=== PATIENT | female | born 1940 | race Caucasian/White ===

== ENCOUNTER → 2024-09-06 09:42 | Outpatient (CLI) | payer MEDICARE, OTHER, SELFPAY | LOC: CAR 09:44 | PROVIDERS: PCP Family Medicine; Referring Provider Family Medicine; Visit Provider Family Medicine | DX: R00.2 Palpitations (principal) | CPT/HCPCS: 93246 ==

== ENCOUNTER → 2024-12-30 11:12 | Outpatient (CLI) | payer MEDICARE, OTHER, SELFPAY ==
[2024-12-30 12:12] LABS: Add Manual Diff / Slide Review NO; Basophils Absolute Auto 0 /uL (0-100); Basophils Percent Auto 0.7 % (0-2); Eosinophils Absolute Auto 100 /uL (0-450); Eosinophils Percent Auto 1.5 % (2-4); Hematocrit 35.7 % (36-46); Hemoglobin 12.2 g/dL (12.0-16.0); Lymphocytes Absolute Auto 1200 /uL (1100-4500); Lymphocytes Percent Auto 24.4 % (25-40); Mean Corpuscular Hemoglobin 31.5 PG (26-34); Mean Corpuscular Volume 92.8 fL (80-100); Monocytes Absolute Auto 600 /uL (0-900); Monocytes Percent Auto 12.2 % (3-14); Neutrophils Absolute Auto 3100 /uL (1500-7000); Neutrophils Percent Auto 61.2 % (50-75); Platelet Count 360 X10^3/uL (150-400); Red Blood Cell Count 3.85 X10^6/uL (4.0-5.2); Red Cell Distribution Width 14.4 % (11.6-14.8); White Blood Cell Count 5.1 X10^3/uL (4.5-11.0)
[2024-12-30 12:42] LABS: Alanine Aminotransferase 17 IU/L (<35); Albumin 4.3 g/dL (3.5-5.0); Alkaline Phosphatase 59 U/L (38-126); Aspartate Aminotransferase 24 IU/L (14-36); BUN Creatinine Ratio 26.2 (6-22); Bilirubin Total 0.8 mg/dL (0.2-1.3); Blood Urea Nitrogen 22 mg/dL (7-17); Calcium 9.3 mg/dL (8.4-10.2); Carbon Dioxide 24 mmol/L (22-32); Chloride 97 mmol/L (98-107); Cholesterol 183 mg/dL (140-199); Estimated Glomerular Filt Rate > 60 mL/min (>60); Globulin 2.2 g/dL (1.7-4.1); Glucose 88 mg/dL (70-99); HDL Cholesterol 108 mg/dL (40-60); HEMOLYSIS < 15 (0-50); LDL Cholesterol Calculated 60 mg/dL (<100); Potassium 4.4 mmol/L (3.4-5.1); Sodium 127 mmol/L (137-145); Total Protein 6.5 g/dL (6.3-8.2); Triglycerides 77 mg/dL (35-150)
[2024-12-30 12:43] LABS: Hemoglobin A1C% w Est Avg Glu 5.1 % (4.0-6.0)
[2024-12-30 13:19] LABS: Ferritin 73 ng/mL (11-264)
== END ==
PROVIDERS: PCP Family Medicine; Referring Provider Family Medicine; Visit Provider Family Medicine
DX: I47.10 Supraventricular tachycardia, unspecified (principal); I12.9 Hypertensive chronic kidney disease with stage 1 through stage 4 chronic kidney disease, or unspecified chronic kidney disease; N18.31 Chronic kidney disease, stage 3a; R35.1 Nocturia; E78.5 Hyperlipidemia, unspecified; D64.9 Anemia, unspecified
CPT/HCPCS: 36415; 80053; 80061; 82728; 83036; 85025

== ENCOUNTER → 2025-01-05 11:57 | Outpatient (CLI) | payer MEDICARE, OTHER, SELFPAY ==
[2025-01-05 13:22] LABS: Iron 111 ug/dL (37-170)
[2025-01-05 14:00] LABS: Ferritin 76 ng/mL (11-264)
[2025-01-05 14:29] LABS: Folate 19.1 ng/mL (2.76-20.0); Vitamin B12 713 pg/mL (239-931)
== END ==
PROVIDERS: PCP Family Medicine; Referring Provider Family Medicine; Visit Provider Family Medicine
DX: D64.9 Anemia, unspecified (principal); Z86.39 Personal history of other endocrine, nutritional and metabolic disease
CPT/HCPCS: 36415; 82607; 82728; 82746; 83540

== ENCOUNTER → 2025-03-02 12:26 | Outpatient (CLI) | payer MEDICARE, OTHER, SELFPAY ==
[2025-03-02 14:46] LABS: Blood Urea Nitrogen 17 mg/dL (7-17); Calcium 9.5 mg/dL (8.4-10.2); Carbon Dioxide 25 mmol/L (22-32); Chloride 96 mmol/L (98-107); Estimated Glomerular Filt Rate > 60 mL/min (>60); Glucose 96 mg/dL (70-99); HEMOLYSIS < 15 (0-50); Potassium 4.4 mmol/L (3.4-5.1); Sodium 130 mmol/L (137-145)
== END ==
PROVIDERS: Family Provider Family Medicine; PCP Family Medicine; Referring Provider Family Medicine; Visit Provider Student in an Organized Health Care Education/Training Program
DX: R25.2 Cramp and spasm (principal)
CPT/HCPCS: 36415; 80048

== ENCOUNTER → 2025-04-09 12:43 | Outpatient (CLI) | payer MEDICARE, OTHER, SELFPAY | PROVIDERS: PCP Family Medicine; Visit Provider Family Medicine | DX: N30.00 Acute cystitis without hematuria (principal) | CPT/HCPCS: 87086 ==

== ENCOUNTER 2025-04-16 19:18 | Emergency (ER) | payer MEDICARE, OTHER, SELFPAY ==
[2025-04-16] VITALS (11 sets, daily range): BP systolic 129–196; BP diastolic 73–114; PULSE 54–69; RESP 10–22; TEMP 36.4; O2SAT 96–100; BMI 24.1
--- NOTE | 2025-04-16 19:56 | EKG_ITS ---
[address] [address] Test Date: 2025-04-16 Pat Name: Aurora Ledesma Department: Room: Gender: Female Creative Services Director: CINDY : 1940 Requested By: Order Number: [id number] Reading MD: Silvino Hedrick MD Measurements Intervals [place] Rate: 60 P: 67 WY: 214 QRS: 27 QRSD: 78 T: 60 QT: 422 QTc: 422 Interpretive Statements Sinus rhythm with 1st degree AV block Electronically Signed On 04-17-2025 6:47:41 PDT by Silvino Hedrick MD
--- NOTE | 2025-04-16 20:29 | ED.BACK ---
HPI - Back Pain/Injury General Chief Complaint: Back Pain/Injury Stated Complaint: Neck pain Time Seen by Provider: 04/16/25 19:50 Source: patient History of Present Illness HPI Narrative: 85-year-old woman presents complaining of low back pain, neck pain, difficulty standing or laying. Diagnosed with COVID 7 days ago started on Paxlovid. Has stopped her amlodipine and trazodone the blood pressures have been relatively well controlled. Comes in complaining that her back is hurting worse in the point that she is unable to sit or lay down. She is quite fidgety, moving from sitting relaxing sitting on the edge of the chair standing pacing all seemingly secondary to pain. She states she has been taking baclofen for her pain. She notes that her back pain has been chronic she has been to physical therapy she is scheduled for steroid epidural injections. Fevers have come down and is no longer significantly coughing. Does continue to complain of headache. Related Data Home Medications ?Medication ?Instructions ?Recorded ?Confirmed cholecalciferol (vitamin D3) 50 50 mcg PO DAILY 05/23/24 04/09/25 mcg (2,000 unit) capsule coenzyme Q10 10 mg capsule (Co 10 mg PO ONCE 05/23/24 04/09/25 Q-10) glucosam 750 mg-chondroi 100 tab PO 05/23/24 04/09/25 mg-hyalur 1.65 mg-CF borate 108 mg tablet ([employer]) multivitamin 1 tab PO DAILY 05/23/24 04/09/25 Previous Rx's ?Medication ?Instructions ?Recorded estradiol 0.01% (0.1 mg/gram) 1 g vaginal 3XW #42.5 grams 03/20/25 vaginal cream (Estrace) oxybutynin chloride 10 mg 10 mg PO DAILY #30 tabs 03/20/25 tablet,extended release 24 hr amlodipine 5 mg tablet 5 mg PO DAILY #90 tabs 04/09/25 atenolol 25 mg tablet 25 mg PO DAILY #90 tabs 04/09/25 atorvastatin 10 mg tablet 10 mg PO DAILY #90 tabs 04/09/25 losartan 50 mg tablet 50 mg PO DAILY #90 tabs 04/09/25 trazodone 50 mg tablet 50 mg PO DAILY #90 tabs 04/09/25 nirmatrelvir 300 mg (150 mg See Rx Instructions PO .COMPLEX 04/10/25 x2)-ritonavir 100 mg tablet,dose #30 ea pack (Paxlovid) Allergies Allergy/AdvReac Type Severity Reaction Status Date / Time bacitracin (From Neosporin Allergy Unknown Verified 04/16/25 19:24 ([id number])) neomycin (From Neosporin Allergy Unknown Verified 04/16/25 19:24 ([id number])) polymyxin B (From Neosporin Allergy Unknown Verified 04/16/25 19:24 ([id number])) Review of Systems Review of Systems Narrative: Orbital fortune are intact. Sinus fortune show no fracture or deformity. Nasal bones and septum are intact. Visualized portions of the mandible demonstrate no fractures or subluxation. Zygomatic arches are intact. Pterygoid plates are intact. Visualized portions of the skull base and auditory canals are intact. Area of sclerosis are seen within the right sphenoid bone ( Patient History Medical History (Updated 04/16/25 @ 22:36 by Sally Lee MD) Cystocele, midline Vaginal atrophy OAB (overactive bladder) Surgical History History of amputation of right thumb History of knee replacement History of ankle surgery Social History Smoking Status: Never smoker Smoking Status: Never smoker Exam Initial Vital Signs Initial Vital Signs: Vital Signs Temperature 97.5 F L 04/16/25 19:22 Pulse Rate 69 04/16/25 19:22 Respiratory Rate 22 04/16/25 19:22 Blood Pressure 178/73 H 04/16/25 19:22 Pulse Oximetry 97 04/16/25 19:22 Oxygen Delivery Method Room Air 04/16/25 19:22 General: Older but not frail appearing. She appears uncomfortable moving from seated to edges heat to standing to pacing to seated HEENT: Moist mucous membranes, normal sclera with reactive pupils, Respiratory: Lungs are clear to auscultation, no wheezing no rales no rhonchi. Full and symmetrical air movement Cardiac: Regular rate and rhythm no murmurs no bruits Abdomen: Soft, nontender, no rebound or guarding, no flank pain Spine: Lower lumbar area, the entire area, has some mild tenderness she does not have any point tenderness along the lumbar thoracic or cervical spine Skin: Warm and dry, no rashes Neurologic: Grossly neurologically intact with no obvious asymmetries or abnormalities Extremities: No trauma, no edema Psych: Cooperative, appropriate insight and affect Course Orders Ordered: ED Orders 04/16/25 19:53 EKG-12 Lead Stat 04/16/25 21:14 Complete Blood Count AUTO DIFF Stat Comprehensive Metabolic Panel Stat Osmolality, Serum Stat TSH w/ Reflex to FT4 Stat Uric Acid Stat 04/16/25 22:50 Osmolality Urine Stat Urinalysis and Microscopic Stat 04/17/25 01:24 BMP [Basic Metabolic Panel] Stat 04/17/25 06:24 Cortisol AM (Before 10AM) Stat Sodium Chloride (Hypertonic Saline 3%) 100 mls @ 20 mls/hr IV NOW ONE Stop: 04/17/25 03:26 Last Admin: 04/16/25 22:54 Dose: 20 mls/hr Documented By: JAIME Discontinued Medications Sodium Chloride (Normal Saline 0.9%) 1,000 mls @ 1,000 mls/hr IV BOLUS ONE Stop: 04/16/25 21:26 Last Infusion: 04/16/25 22:51 Dose: Infused Documented By: Admin: 04/16/25 21:33 Dose: 1,000 mls/hr Documented By: JAIME Ketorolac Tromethamine (Ketorolac 30 Mg/Ml Vial) 15 mg IV NOW ONE Stop: 04/16/25 20:28 Last Admin: 04/16/25 21:34 Dose: 15 mg Documented By: JAIME Ondansetron HCl (Ondansetron 4 Mg/2 Ml Inj) 4 mg IV NOW ONE Stop: 04/16/25 20:28 Last Admin: 04/16/25 21:34 Dose: 4 mg Documented By: JAIME Vital Signs Vital signs: Vital Signs - 8 hr 04/16/25 19:22 04/16/25 21:50 04/16/25 22:01 Temperature 97.5 F L Pulse Rate 69 Respiratory Rate 22 14 Blood Pressure 178/73 H 186/84 H Pulse Oximetry 97 Oxygen Delivery Method Room Air 04/16/25 22:07 Temperature Pulse Rate 56 L Respiratory Rate Blood Pressure Pulse Oximetry Oxygen Delivery Method MDM - Back Pain/Injury Lab Data 04/16/25 21:14 04/16/25 21:14 Labs: Lab Results 04/16/25 04/16/25 Range/Units 21:14 22:50 WBC 6.6 (4.5-11.0) X10^3/uL RBC 3.74 L (4.0-5.2) X10^6/uL Hgb 11.3 L (12.0-16.0) g/dL Hct 32.9 L (36-46) % MCV 87.8 (80-100) fL MCH 30.3 (26-34) PG MCHC 34.5 (30-36) % RDW 12.7 (11.6-14.8) % Plt Count 459 H (150-400) X10^3/uL Neut % (Auto) 60.5 (50-75) % Lymph % (Auto) 26.4 (25-40) % [place] % (Auto) 11.9 (3-14) % Eos % (Auto) 0.8 L (2-4) % Baso % (Auto) 0.4 (0-2) % Neut # (Auto) 4000 (7974-2889) /uL Lymph # (Auto) 1700 (9346-5192) /uL [place] # (Auto) 800 (0-900) /uL Eos # (Auto) 100 (0-450) /uL Baso # (Auto) 0 (0-100) /uL Sodium 114 L* (137-145) mmol/L Potassium 4.3 (3.4-5.1) mmol/L Chloride 88 L (98-107) mmol/L Carbon Dioxide 15 L (22-32) mmol/L BUN 15 (7-17) mg/dL Creatinine 0.77 (0.52-1.04) mg/dL Estimated GFR > 60 (>60) mL/min BUN/Creatinine Ratio 19.5 (6-22) Glucose 93 (70-99) mg/dL Uric Acid 2.8 (2.5-6.2) mg/dL Calcium 9.0 (8.4-10.2) mg/dL Total Bilirubin 0.5 (0.2-1.3) mg/dL AST 28 (14-36) IU/L ALT 17 (<35) IU/L Alkaline Phosphatase 71 (38-126) U/L Total Protein 7.4 (6.3-8.2) g/dL Albumin 4.5 (3.5-5.0) g/dL Globulin 2.9 (1.7-4.1) g/dL Albumin/Globulin Ratio 1.6 (1.0-2.8) TSH 1.66 (0.47-4.68) uIU/mL Urine Color Yellow Urine Appearance Clear Urine pH 6.0 (4.5-8.0) Ur Specific [place] <=1.005 (1.000-1.035) Urine Protein Negative (Negative) Urine Glucose (UA) Negative (Negative) g/dL Urine Ketones Trace H (NEGATIVE) Urine Occult Blood Negative (Negative) Urine Nitrate Negative (Negative) Urine Bilirubin Negative (NEGATIVE) Urine Urobilinogen 0.2 (0.2) E.U./dL Ur Leukocyte Esterase Negative (NEGATIVE) Urine RBC None seen (0-5/HPF) Urine WBC None seen (0-5/HPF) Ur Squamous Epith Cells 0-1 /hpf (0-5/HPF) Urine Bacteria None seen (None) Ur Culture Indicated? Cult not indicated Vol Urine Centrifuged 10ml (spun) MDM Narrative Medical decision making narrative: CC: Back pain, headache Complicating co-morbidities: Day 7 of COVID, final dose of Paxlovid this morning, hypertension Data collected from: patient Medical records reviewed: Recent PCP note reviewed. There was a mention of hyponatremia (at 130) with nephrology referral. Differential considered: Medication side effect, COVID symptoms, exacerbation of her chronic back pain, meningitis, electrolyte abnormalities Exam documented above, pertinent findings include: Diffuse low back pain without radicular symptoms and mobility is not impaired. Clinically patient is euvolemic. Lab Test results independently reviewed as above. Pertinent findings: Chemistries show a sodium of 114. Chloride is low at 88, potassium appropriate at 4.3. Creatinine normal at 0.77. Calcium is normal at 9. Liver studies are all unremarkable CBC is unremarkable Independently reviewed EKG: Sinus rhythm at a rate of 60. No acute ischemic changes Consultations: [facility] has no beds available. There public health physician declined consultation as we have no formal agreement and patient went lot be transferring to [facility] Patient does get to the majority of her care including Nephrology, at [facility]. We will see if beds are available there Treatments: 100 cc of hypertonic saline, repeat BNP 2 hours after infusion. Free water restriction. Remainder of labs for full workup for severe hyponatremia initiated Re-evaluations: Discussed with the patient and her daughter. Discussion: 85-year-old woman with recent COVID infection, completed Paxlovid earlier this morning, hypertension with increasing agitation and complaining of worsening of her chronic back pain. Severe hyponatremia at 114. Will give her 100 cc of hypertonic saline, additional labs have been ordered, repeat BNP 2 hours after the hypertonic saline. Continue to look for ICU bed availability with Nephrology consulted capacity Beds availalbe at [facility]. Discused with college admissions counselor, Dr Lee. Patient is accepted to the ICU, outlined plans and labs ordered as above. Waiting for bed availability. Transport available to [facility] ICU. Critical Care Time Critical Care Time Critical Care Time: Yes Total Critical Care Time: 33 Attestation: Critical care time is separate from other billable procedures. There is a high probability of a significant, sudden or life-threatening deterioration that requires my full and direct attention, intervention and personal management. This critical care time includes consultation with family and other consulting doctors, review of records, and interpretation of data from labs, EKGs and imaging as well as managements of acute symptomatic hyponatremia at 114 with hypertonic saline and plans for transfer to ICU care Discharge Plan Departure Patient Disposition: [facility] Clinical Impression: Acute hyponatremia, Chronic back pain Prescriptions: No Action coenzyme Q10 [Co Q-10] 10 mg capsule 10 mg PO ONCE cholecalciferol (vitamin D3) 50 mcg (2,000 unit) capsule 50 mcg PO DAILY multivitamin Tablet 1 tab PO DAILY Move Free [employer] [facility] 750 mg-100 mg- 1.65 mg-108 mg tablet PO amlodipine 5 mg tablet 5 mg PO DAILY Qty: 90 3RF atenolol 25 mg tablet 25 mg PO DAILY Qty: 90 3RF atorvastatin 10 mg tablet 10 mg PO DAILY Qty: 90 3RF losartan 50 mg tablet 50 mg PO DAILY Qty: 90 3RF trazodone 50 mg tablet 50 mg PO DAILY Qty: 90 3RF Paxlovid 300 mg (150 mg x 2)-100 mg tablets,dose pack See Rx Instructions PO .COMPLEX Qty: 30 0RF Rx Instructions: take TWO 150 mg tablets of nirmatrelvir with ONE 100 mg tablet of ritonavir twice daily for 5 days PO oxybutynin chloride 10 mg tablet extended release 24hr 10 mg PO DAILY Qty: 30 6RF estradiol [Estrace] 0.01 % (0.1 mg/gram) cream 1 g vaginal 3XW Qty: 42.5 4RF Rx Instructions: Use at night, 1 g, Wednesday Referrals: Fabiola Ghosh MD [Primary Care Provider, Family Practice]
[2025-04-16 21:22] LABS: Add Manual Diff / Slide Review NO; Hematocrit 32.9 % (36-46); Hemoglobin 11.3 g/dL (12.0-16.0); Lymphocytes Absolute Auto 1700 /uL (1100-4500); Mean Corpuscular HGB Conc 34.5 % (30-36); Mean Corpuscular Hemoglobin 30.3 PG (26-34); Mean Corpuscular Volume 87.8 fL (80-100); Platelet Count 459 X10^3/uL (150-400)
[2025-04-16] MEDS: SODIUM CHLORIDE 0.9% 1,000 ML 1000 ML IV (21:33)
[2025-04-16] MEDS: KETOROLAC 30 MG/ML VIAL 15 MG IV (21:34)
[2025-04-16] MEDS: ONDANSETRON 4 MG/2 ML INJ IV (21:34)
[2025-04-16 21:45] LABS: Alanine Aminotransferase 17 IU/L (<35); Albumin 4.5 g/dL (3.5-5.0); Albumin Globulin Ratio 1.6 (1.0-2.8); Alkaline Phosphatase 71 U/L (38-126); Blood Urea Nitrogen 15 mg/dL (7-17); Calcium 9.0 mg/dL (8.4-10.2); Carbon Dioxide 15 mmol/L (22-32); Chloride 88 mmol/L (98-107); Estimated Glomerular Filt Rate > 60 mL/min (>60); Globulin 2.9 g/dL (1.7-4.1); Glucose 93 mg/dL (70-99); HEMOLYSIS < 15 (0-50); Potassium 4.3 mmol/L (3.4-5.1); Total Protein 7.4 g/dL (6.3-8.2)
[2025-04-16 21:52] LABS: Sodium 114 mmol/L (137-145)
[2025-04-16 22:45] LABS: Uric Acid 2.8 mg/dL (2.5-6.2)
[2025-04-16] MEDS: SODIUM CHLORIDE 3 % 100 ML 20 ML IV (22:54)
[2025-04-16 23:07] LABS: Appearance Urine UA CLEAR; Bilirubin Urine UA NEGATIVE (NEGATIVE); Color Urine UA YELLOW; Glucose Urine UA NEGATIVE (Negative); Ketones Urine UA TRACE (NEGATIVE); Leukocyte Esterase Urine UA NEGATIVE (NEGATIVE); Nitrite Urine UA NEGATIVE (Negative); Occult Blood Urine UA NEGATIVE (Negative); Protein Urine UA NEGATIVE (Negative); Specific Gravity Urine UA <=1.005 (1.000-1.035); Urobilinogen Urine UA 0.2 E.U./dL (0.2)
[2025-04-16 23:08] LABS: pH Urine UA 6.0 (4.5-8.0)
[2025-04-16 23:12] LABS: TSH w/ Reflex to FT4 1.66 uIU/mL (0.47-4.68)
[2025-04-16 23:15] LABS: Culture Indicated Urine Cult Not Indicated
[2025-04-17] VITALS: PULSE 61; RESP 15; O2SAT 99
[2025-04-17 00:30] VITALS: PULSE 61; RESP 20; O2SAT 98
[2025-04-17 00:44] VITALS: BP 189/86; PULSE 61; RESP 22; O2SAT 99
[2025-04-18 15:36] LABS: Osmolality, Serum 290 mOsmol/kg (280-301)
== END 2025-04-17 01:26 | disposition short-term general hospital (02) ==
PROVIDERS: Emergency Provider Emergency Medicine; PCP Family Medicine
DX: E87.1 Hypo-osmolality and hyponatremia (principal); R45.1 Restlessness and agitation; G89.29 Other chronic pain; U07.1 COVID-19; M54.2 Cervicalgia; I10 Essential (primary) hypertension
CPT/HCPCS: 36415; 80053; 81001; 83930; 83935; 84443; 84550; 85025; 93005; 96361; 96374; 96375; 99284; 99291; J1885; J2405

== ENCOUNTER → 2025-04-19 17:09 | Outpatient (CLI) | payer MEDICARE, OTHER, SELFPAY ==
[2025-04-19 17:43] LABS: Add Manual Diff / Slide Review NO; Hematocrit 33.3 % (36-46); Hemoglobin 11.5 g/dL (12.0-16.0); Lymphocytes Absolute Auto 1800 /uL (1100-4500); Mean Corpuscular HGB Conc 34.5 % (30-36); Mean Corpuscular Hemoglobin 30.5 PG (26-34); Mean Corpuscular Volume 88.5 fL (80-100); Platelet Count 543 X10^3/uL (150-400)
[2025-04-19 18:07] LABS: Alanine Aminotransferase 16 IU/L (<35); Albumin 4.2 g/dL (3.5-5.0); Albumin Globulin Ratio 1.6 (1.0-2.8); Alkaline Phosphatase 72 U/L (38-126); Blood Urea Nitrogen 28 mg/dL (7-17); Calcium 9.3 mg/dL (8.4-10.2); Carbon Dioxide 22 mmol/L (22-32); Chloride 91 mmol/L (98-107); Estimated Glomerular Filt Rate > 60 mL/min (>60); Globulin 2.6 g/dL (1.7-4.1); Glucose 95 mg/dL (70-99); HEMOLYSIS < 15 (0-50); Potassium 5.3 mmol/L (3.4-5.1); Sodium 120 mmol/L (137-145); Total Protein 6.8 g/dL (6.3-8.2)
== END ==
PROVIDERS: PCP Family Medicine; Referring Provider Family Medicine; Visit Provider Family Medicine
DX: E78.1 Pure hyperglyceridemia (principal); E87.1 Hypo-osmolality and hyponatremia
CPT/HCPCS: 36415; 80053; 85025

== ENCOUNTER 2025-04-20 09:38 | Emergency (ER) | payer MEDICARE, OTHER, SELFPAY ==
[2025-04-20] VITALS (24 sets, daily range): BP systolic 133–186; BP diastolic 60–107; PULSE 53–82; RESP 12–35; TEMP 36.6; O2SAT 91–100; BMI 23.8
--- NOTE | 2025-04-20 09:59 | DI.RAD.S_ITS ---
PROCEDURE: XR CHEST 1V INDICATIONS: altered mental status TECHNIQUE: One view of the chest was acquired. COMPARISON: None. FINDINGS: Surgical changes and devices: None. Lungs and pleura: Lungs are clear. No pleural effusions or pneumothorax. Mediastinum: Mediastinal contours appear normal. Heart size is normal. Bones and chest wall: No suspicious bony lesions. Overlying soft tissues appear unremarkable. IMPRESSION: No acute cardiopulmonary abnormality is seen. Dictated by: Michael Jasso M.D. on 04/20/2025 at 11:10 Approved by: Michael Jasso M.D. on 04/20/2025 at 11:10
--- NOTE | 2025-04-20 10:08 | EKG_ITS ---
[address] [address] Test Date: 2025-04-20 Pat Name: Aurora Ledesma Department: [facility] Room: Gender: Female Amusement Equipment Operator: SURINDER : 1940 Requested By: Order Number: [id number] Reading MD: Silvino Hedrick MD Measurements Intervals [place] Rate: 52 P: 62 WY: 210 QRS: 6 QRSD: 80 T: 47 QT: 452 QTc: 420 Interpretive Statements Sinus bradycardia with 1st degree AV block Electronically Signed On 04-20-2025 12:00:07 PDT by Silvino Hedrick MD
[2025-04-20 10:19] LABS: Add Manual Diff / Slide Review NO; Hematocrit 33.4 % (36-46); Hemoglobin 11.5 g/dL (12.0-16.0); Lymphocytes Absolute Auto 1400 /uL (1100-4500); Mean Corpuscular HGB Conc 34.4 % (30-36); Mean Corpuscular Hemoglobin 30.5 PG (26-34); Mean Corpuscular Volume 88.8 fL (80-100); Platelet Count 496 X10^3/uL (150-400)
[2025-04-20 10:34] LABS: Alanine Aminotransferase 19 IU/L (<35); Albumin 4.4 g/dL (3.5-5.0); Albumin Globulin Ratio 1.6 (1.0-2.8); Alkaline Phosphatase 71 U/L (38-126); Blood Urea Nitrogen 25 mg/dL (7-17); Calcium 9.1 mg/dL (8.4-10.2); Carbon Dioxide 19 mmol/L (22-32); Chloride 92 mmol/L (98-107); Creatine Kinase 45 U/L (30-135); Estimated Glomerular Filt Rate > 60 mL/min (>60); Globulin 2.8 g/dL (1.7-4.1); Glucose 86 mg/dL (70-99); HEMOLYSIS < 15 (0-50); Potassium 4.5 mmol/L (3.4-5.1); Sodium 122 mmol/L (137-145); Total Protein 7.2 g/dL (6.3-8.2)
[2025-04-20 10:35] LABS: Lactate (Lactic Acid) 1.4 mmol/L (0.7-2.1)
[2025-04-20 10:46] LABS: Troponin I < 0.012 ng/mL (0.01-0.034)
[2025-04-20 10:51] LABS: Procalcitonin 0.043 ng/mL (<0.5)
--- NOTE | 2025-04-20 10:54 | ED.RECABL ---
HPI - Recheck/Abnormal Lab/Rx General Chief Complaint: Recheck/Abnormal Lab/Rx Stated Complaint: pc ref low sodium Time Seen by Provider: 04/20/25 09:48 Source: patient Mode of arrival: Ambulatory History of Present Illness HPI narrative: Patient discharged from [facility] yesterday for hyponatremia followed by hospitalist and decaler. Patient has had past history of SIADH. Do not requiring medications for it. She was taken off her trazodone which makes her more anxious. She states the trazodone was making the hyponatremia worse. Patient is outpatient sodium was 122. Patient feels restless. No altered mental status. No seizures. Daughter is at bedside. In addition no bowel movement for the past 7 days. Related Data Home Medications ?Medication ?Instructions ?Recorded ?Confirmed cholecalciferol (vitamin D3) 50 50 mcg PO DAILY 05/23/24 04/20/25 mcg (2,000 unit) capsule coenzyme Q10 10 mg capsule (Co 10 mg PO ONCE 05/23/24 04/20/25 Q-10) glucosam 750 mg-chondroi 100 tab PO 05/23/24 04/20/25 mg-hyalur 1.65 mg-CF borate 108 mg tablet ([place]) multivitamin 1 tab PO DAILY 05/23/24 04/20/25 Previous Rx's ?Medication ?Instructions ?Recorded estradiol 0.01% (0.1 mg/gram) 1 g vaginal 3XW #42.5 grams 03/20/25 vaginal cream (Estrace) oxybutynin chloride 10 mg 10 mg PO DAILY #30 tabs 03/20/25 tablet,extended release 24 hr amlodipine 5 mg tablet 5 mg PO DAILY #90 tabs 04/09/25 atenolol 25 mg tablet 25 mg PO DAILY #90 tabs 04/09/25 atorvastatin 10 mg tablet 10 mg PO DAILY #90 tabs 04/09/25 losartan 50 mg tablet 50 mg PO DAILY #90 tabs 04/09/25 trazodone 50 mg tablet 50 mg PO DAILY #90 tabs 04/09/25 nirmatrelvir 300 mg (150 mg See Rx Instructions PO .COMPLEX 04/10/25 x2)-ritonavir 100 mg tablet,dose #30 ea pack (Paxlovid) Allergies Allergy/AdvReac Type Severity Reaction Status Date / Time bacitracin (From Neosporin Allergy Unknown Verified 04/20/25 09:42 ([id number])) neomycin (From Neosporin Allergy Unknown Verified 04/20/25 09:42 ([id number])) polymyxin B (From Neosporin Allergy Unknown Verified 04/20/25 09:42 ([id number])) Review of Systems Review of Systems Narrative: GENERAL: Negative chills, positive fatigue, malaise, negative fever, sweats. HEENT: Negative sinus pain, ear pain, sore throat RESPIRATORY: Negative dyspnea, cough CARDIOVASCULAR: Negative chest pain, palpitations GASTROINTESTINAL: Negative vomiting, nausea, abdominal pain : Negative dysuria, frequency, hematuria MUSCULOSKELETAL: Negative muscle or bony pain SKIN: Negative rash, skin lesions NEUROLOGIC: Negative weakness, numbness ROS Unobtainable: All systems reviewed & are unremarkable except as noted in HPI and below Patient History Medical History (Updated 04/20/25 @ 13:02 by Jeff Bartholomew MD) Cystocele, midline Vaginal atrophy OAB (overactive bladder) Surgical History History of amputation of right thumb History of knee replacement History of ankle surgery Social History Smoking Status: Unknown if ever smoked Smoking Status: Unknown if ever smoked Exam Narrative Exam Narrative: GENERAL: in no distress, not toxic not dyspneic HEAD: Normocephalic. EYES: Pupils equal round ENT: Mucous membranes moist. NECK: Trachea midline. CARDIOVASCULAR: Regular rate and rhythm RESPIRATORY: Clear to auscultation. Breath sounds equal bilaterally. No wheezes, rales, or rhonchi. GASTROINTESTINAL: Abdomen soft, non-tender no peritoneal signs bowel sounds are present. EXTREMITIES: No gross deformities. BACK: No flank tenderness. NEURO: AOx4. Clear speech SKIN: Warm and dry PSYCH: Not anxious, is cooperative Initial Vital Signs Initial Vital Signs: Vital Signs Temperature 97.8 F 04/20/25 09:42 Pulse Rate 54 L 04/20/25 09:42 Respiratory Rate 15 04/20/25 09:42 Blood Pressure 149/65 H 04/20/25 09:42 Pulse Oximetry 100 04/20/25 09:42 Oxygen Delivery Method Room Air 04/20/25 09:42 Course Orders Ordered: Discontinued Medications Alprazolam (Alprazolam 0.25 Mg Tablet) 0.25 mg PO NOW ONE Stop: 04/20/25 10:55 Last Admin: 04/20/25 11:33 Dose: Not Given Documented By: THEE Hydroxyzine HCl (Hydroxyzine Hcl 25 Mg Tablet) 25 mg PO NOW ONE Stop: 04/20/25 11:09 Last Admin: 04/20/25 11:35 Dose: 25 mg Documented By: THEE Sodium Chloride (Normal Saline 0.9%) 500 mls @ 1,000 mls/hr IV BOLUS ONE Stop: 04/20/25 13:28 Last Infusion: 04/20/25 14:00 Dose: Infused Documented By: Admin: 04/20/25 13:12 Dose: 1,000 mls/hr Documented By: BRE Vital Signs Vital signs: Vital Signs - 8 hr 04/20/25 09:42 04/20/25 09:53 04/20/25 09:55 Temperature 97.8 F Pulse Rate 54 L 63 55 L Respiratory Rate 15 Blood Pressure 149/65 H Pulse Oximetry 100 100 100 Oxygen Delivery Method Room Air 04/20/25 09:55 04/20/25 10:00 04/20/25 10:01 Temperature Pulse Rate 62 53 L Respiratory Rate 13 12 Blood Pressure 176/76 H Pulse Oximetry 100 100 Oxygen Delivery Method 04/20/25 10:01 04/20/25 10:30 04/20/25 10:30 Temperature Pulse Rate 58 L Respiratory Rate 29 H Blood Pressure 173/75 H 186/78 H Pulse Oximetry 100 Oxygen Delivery Method 04/20/25 11:00 04/20/25 11:01 04/20/25 11:01 Temperature Pulse Rate 57 L 65 Respiratory Rate 24 27 H Blood Pressure 176/107 H Pulse Oximetry 92 96 Oxygen Delivery Method 04/20/25 11:30 04/20/25 11:31 04/20/25 11:31 Temperature Pulse Rate 56 L 58 L Respiratory Rate 16 21 Blood Pressure 158/67 H Pulse Oximetry 95 93 Oxygen Delivery Method 04/20/25 12:00 04/20/25 12:00 04/20/25 12:30 Temperature Pulse Rate 55 L 55 L Respiratory Rate 16 23 Blood Pressure 163/69 H Pulse Oximetry 100 98 Oxygen Delivery Method 04/20/25 12:30 Temperature Pulse Rate Respiratory Rate Blood Pressure 169/74 H Pulse Oximetry Oxygen Delivery Method MDM - Recheck/Abnormal Lab/Rx Lab Data 04/20/25 10:06 04/20/25 10:06 Labs: Lab Results 04/20/25 Range/Units 10:06 WBC 8.3 (4.5-11.0) X10^3/uL RBC 3.76 L (4.0-5.2) X10^6/uL Hgb 11.5 L (12.0-16.0) g/dL Hct 33.4 L (36-46) % MCV 88.8 (80-100) fL MCH 30.5 (26-34) PG MCHC 34.4 (30-36) % RDW 13.2 (11.6-14.8) % Plt Count 496 H (150-400) X10^3/uL Neut % (Auto) 71.7 (50-75) % Lymph % (Auto) 17.1 L (25-40) % Power % (Auto) 10.1 (3-14) % Eos % (Auto) 0.5 L (2-4) % Baso % (Auto) 0.6 (0-2) % Neut # (Auto) 5900 (1865-6509) /uL Lymph # (Auto) 1400 (5750-6418) /uL Power # (Auto) 800 (0-900) /uL Eos # (Auto) 0 (0-450) /uL Baso # (Auto) 0 (0-100) /uL Sodium 122 L (137-145) mmol/L Potassium 4.5 (3.4-5.1) mmol/L Chloride 92 L (98-107) mmol/L Carbon Dioxide 19 L (22-32) mmol/L BUN 25 H (7-17) mg/dL Creatinine 0.89 (0.52-1.04) mg/dL Estimated GFR > 60 (>60) mL/min BUN/Creatinine Ratio 28.1 H (6-22) Glucose 86 (70-99) mg/dL Lactate 1.4 (0.7-2.1) mmol/L Calcium 9.1 (8.4-10.2) mg/dL Magnesium 2.1 (1.6-2.3) mg/dL Total Bilirubin 0.7 (0.2-1.3) mg/dL AST 24 (14-36) IU/L ALT 19 (<35) IU/L Alkaline Phosphatase 71 (38-126) U/L Total Creatine Kinase 45 (30-135) U/L Troponin I < 0.012 (0.01-0.034) ng/mL Total Protein 7.2 (6.3-8.2) g/dL Albumin 4.4 (3.5-5.0) g/dL Globulin 2.8 (1.7-4.1) g/dL Albumin/Globulin Ratio 1.6 (1.0-2.8) Procalcitonin 0.043 (<0.5) ng/mL Urine Dip Bedside Urine Glucose Negative Bedside Urine Bilirubin - Negative Bedside Urine Ketone - Negative Urine Specific [place] 1.005 Bedside Urine Occult Blood - Negative Bedside Urine pH 7.0 Bedside Urine Protein - Negative Bedside Urine Urobilinogen - Negative Bedside Urine Nitrite - Negative Bedside Urine Leukocytes - Negative Esterase Imaging Data Chest x-ray: Radiologist's Impression: [address] [address] XRay Report Signed Patient: Aurora Ledesma MR#: [id number] : 1940 Acct:[id number] Age/Sex: 85 / F Date of Service: 04/20/25 Loc: ED Accession Number: [id number] Procedure: XR chest 1V Ordering Provider: Jeff Bartholomew MD PROCEDURE: XR CHEST 1V INDICATIONS: altered mental status TECHNIQUE: One view of the chest was acquired. COMPARISON: None. FINDINGS: Surgical changes and devices: None. Lungs and pleura: Lungs are clear. No pleural effusions or pneumothorax. Mediastinum: Mediastinal contours appear normal. Heart size is normal. Bones and chest wall: No suspicious bony lesions. Overlying soft tissues appear unremarkable. IMPRESSION: No acute cardiopulmonary abnormality is seen. Dictated by: Michael Jasso M.D. on 04/20/2025 at 11:10 Approved by: Michael Jasso M.D. on 04/20/2025 at 11:10 Abdominal x-ray: Radiologist's Impression: [address] [address] XRay Report Signed Patient: Aurora Ledesma MR#: [id number] : 1940 Acct:[id number] Age/Sex: 85 / F Date of Service: 04/20/25 Loc: ED Accession Number: [id number] Procedure: XR abdomen 1V Ordering Provider: Jeff Bartholomew MD PROCEDURE: XR ABDOMEN 1V INDICATIONS: Abdominal pain/constipation TECHNIQUE: One view of the abdomen acquired. COMPARISON: None. FINDINGS: Surgical changes and devices: None. Bowel: Bowel gas pattern is normal. Prominent stool burden. Soft tissues: No suspicious abdominal calcifications. Visualized solid organ contours appear normal in size. Bones: No suspicious bony lesions. IMPRESSION: Prominent stool burden. Nonobstructive bowel gas pattern Dictated by: Raghavendra Vazquez M.D. on 04/20/2025 at 12:53 Approved by: Raghavendra Vazquez M.D. on 04/20/2025 at 12:54 [facility] Narrative Medical decision making narrative: Patient discharged from [facility] yesterday for hyponatremia followed by hospitalist and decaler. Patient has had past history of SIADH. Do not requiring medications for it. She was taken off her trazodone which makes her more anxious. She states the trazodone was making the hyponatremia worse. Patient is outpatient sodium was 122. Patient feels restless. No altered mental status. No seizures. Daughter is at bedside. In addition no bowel movement for the past 7 days. MDM After history and exam, CBC CMP magnesium EKG troponin x-ray abdomen, possible transfer back to [facility], nephrology consult Differential considered: Includes but not limited to hyponatremia bowel obstruction anxiety Medical records reviewed: ER visit here April 16, 2025 Lab Test results independently reviewed as above. Pertinent findings: WBC 8.3 hemoglobin 11.5, sodium 122 potassium 4.5 BUN 25 creatinine 0.89 troponin less than 0.012 procalcitonin 0.043 Independently reviewed EKG sinus bradycardia rate 52 Imaging studies independently reviewed: Chest x-ray no acute finding. Abdominal x-ray stool burden present Consultations: 1:00 p.m.. I spoke with Dr. Graves, patient's decaler. Recommends patient to be readmitted to [facility]. Give patient 500 mL of normal saline now. 1:04 p.m.. I spoke with [facility] hospitalist, dr navarro, hospitalist, will admit patient. Re-evaluations: 1:10 p.m.. Updated patient and family for readmission to [facility]. They do agree and understand for continuity of care. We do not have Nephrology here. Discussion: Appropriate for transfer continuity of care and nephrology services that we do not have here. Diagnosis: Hyponatremia Discharge Plan Departure Patient Disposition: [facility] Clinical Impression: Hyponatremia Prescriptions: No Action coenzyme Q10 [Co Q-10] 10 mg capsule 10 mg PO ONCE cholecalciferol (vitamin D3) 50 mcg (2,000 unit) capsule 50 mcg PO DAILY multivitamin Tablet 1 tab PO DAILY [facility] 750 mg-100 mg- 1.65 mg-108 mg tablet PO amlodipine 5 mg tablet 5 mg PO DAILY Qty: 90 3RF atenolol 25 mg tablet 25 mg PO DAILY Qty: 90 3RF atorvastatin 10 mg tablet 10 mg PO DAILY Qty: 90 3RF losartan 50 mg tablet 50 mg PO DAILY Qty: 90 3RF trazodone 50 mg tablet 50 mg PO DAILY Qty: 90 3RF Paxlovid 300 mg (150 mg x 2)-100 mg tablets,dose pack See Rx Instructions PO .COMPLEX Qty: 30 0RF Rx Instructions: take TWO 150 mg tablets of nirmatrelvir with ONE 100 mg tablet of ritonavir twice daily for 5 days PO oxybutynin chloride 10 mg tablet extended release 24hr 10 mg PO DAILY Qty: 30 6RF estradiol [Estrace] 0.01 % (0.1 mg/gram) cream 1 g vaginal 3XW Qty: 42.5 4RF Rx Instructions: Use at night, 1 g, Wednesday Referrals: Fabiola Ghosh MD [Primary Care Provider, Family Practice]
[2025-04-20 11:14] LABS: Magnesium 2.1 mg/dL (1.6-2.3)
[2025-04-20] MEDS: SODIUM CHLORIDE 0.9% 500 ML 1000 ML IV (13:12)
== END 2025-04-20 19:00 | disposition short-term general hospital (02) ==
PROVIDERS: Emergency Provider Emergency Medicine; PCP Family Medicine
DX: E87.1 Hypo-osmolality and hyponatremia (principal); R41.82 Altered mental status, unspecified; R10.9 Unspecified abdominal pain; K59.00 Constipation, unspecified
CPT/HCPCS: 36415; 71045; 74018; 80053; 81003; 82550; 83605; 83735; 84145; 84484; 85025; 93005; 93010; 96360; 99284; A9270

== ENCOUNTER → 2025-04-26 15:51 | Outpatient (CLI) | payer MEDICARE, OTHER, SELFPAY ==
[2025-04-26 18:15] LABS: Albumin 4.0 g/dL (3.5-5.0); Blood Urea Nitrogen 24 mg/dL (7-17); Calcium 9.3 mg/dL (8.4-10.2); Carbon Dioxide 22 mmol/L (22-32); Chloride 99 mmol/L (98-107); Estimated Glomerular Filt Rate > 60 mL/min (>60); Glucose 78 mg/dL (70-99); HEMOLYSIS < 15 (0-50); Phosphorous 4.0 mg/dL (2.8-4.1); Potassium 4.5 mmol/L (3.4-5.1); Sodium 131 mmol/L (137-145)
== END ==
PROVIDERS: PCP Family Medicine; Referring Provider Internal Medicine Nephrology; Visit Provider Internal Medicine Nephrology
DX: E87.1 Hypo-osmolality and hyponatremia (principal)
CPT/HCPCS: 36415; 80069

== ENCOUNTER → 2025-07-03 15:55 | Outpatient (CLI) | payer MEDICARE, OTHER, SELFPAY ==
[2025-07-03 17:10] LABS: Albumin 4.3 g/dL (3.5-5.0); Blood Urea Nitrogen 30 mg/dL (7-17); Calcium 9.9 mg/dL (8.4-10.2); Carbon Dioxide 24 mmol/L (22-32); Chloride 103 mmol/L (98-107); Estimated Glomerular Filt Rate > 60 mL/min (>60); Glucose 78 mg/dL (70-99); HEMOLYSIS < 15 (0-50); Phosphorous 4.6 mg/dL (2.8-4.1); Potassium 4.5 mmol/L (3.4-5.1); Sodium 136 mmol/L (137-145)
[2025-07-04 17:38] LABS: Protein (Total) Urine Random 6 mg/dL (0-12); Protein Creatinine Ratio Urine 0.06 GRAM/24H
== END ==
PROVIDERS: PCP Family Medicine; Referring Provider Internal Medicine Nephrology; Visit Provider Internal Medicine Nephrology
DX: E87.1 Hypo-osmolality and hyponatremia (principal)
CPT/HCPCS: 36415; 80069; 82570; 84156

== ENCOUNTER → 2025-07-11 12:07 | Outpatient (CLI) | payer MEDICARE, OTHER, SELFPAY ==
[2025-07-11 14:15] LABS: Clostridium Difficile Tox PCR Negative for C. diff (Negative)
== END ==
PROVIDERS: PCP Family Medicine; Referring Provider Family Medicine; Visit Provider Family Medicine
DX: R19.7 Diarrhea, unspecified (principal)
CPT/HCPCS: 87045; 87493